=== PATIENT | male | born 1950 | race Caucasian/White ===

== ENCOUNTER 2018-01-29 10:34 | Day surgery (SDC) | payer MEDICARE, OTHER, SELFPAY ==
--- NOTE | 2018-01-29 | PATH_ITS ---
[facility] Accession Number: [id number] . 01 Material submitted: . POLYP AT 85 . 02 Diagnosis: Colon Polyp, at 85 cm: Tubular adenoma. MRV/02/01/2018 . 02 Electronically signed: . Tate Miles MD, PhD, Pathologist NPI- [id number] . 01 Gross description: . Received in one formalin-filled container labeled with the patient's name and labeled polyp at 85, are two less than 0.1 cm to 0.2 cm portions of tissue, entirely submitted in one cassette. ([id number]) /FRR . 02 Pathologist provided ICD-10: D12.6 . 02 CPT . 329053 Performed at: 01 [facility] [address] [place] [address], [place], [place] [id number] MD Jewel Hung MD Phone: [phone] Performed at: 02 [facility] [address] [place], [place] [id number] MD Checo Levy MD Phone: [phone]
[2018-01-29 11:17] VITALS: BP 170/81; PULSE 68; RESP 16; TEMP 36.8; O2SAT 96; BMI 34.9
[2018-01-29] MEDS: LACTATED RINGERS 1,000 ML 200 ML IV (11:25)
[2018-01-29] MEDS: MIDAZOLAM 5 MG/5 ML VIAL IV (12:46)
[2018-01-29] MEDS: fentaNYL 250 MCG/5 ML INJ IV (12:47)
[2018-01-29 13:06] VITALS: BP 98/68; PULSE 62; RESP 15; TEMP 36.8; O2SAT 95
[2018-01-29 13:21] VITALS: BP 112/68; PULSE 64; RESP 15; TEMP 36.3; O2SAT 94
--- NOTE | 2018-01-29 14:15 | PM.OP.ENDO ---
Operative Date/Time/Diagnoses Date of procedure: 01/29/18 Time of procedure: 12:32 Pre-op diagnosis: H/o polyps Post-op diagnosis: other (single small 3-4mm polyp at 85cm. Cold forcep bx removal) Procedure & Clinicians Indications: H/o colonic polyps Screening colonoscopy Surgeon: Isaias Barboza Procedure Notes SCOAP/Timeout: Yes Procedure in detail: After informed consent patient was taken to the endoscopy suite. Consent was reviewed including risks of perforation missed lesion anesthesia airway bleeding perforation of colon and other. A total of 6 mg of Versed and 150 mcg of fentanyl was used throughout the procedure. Total withdrawal time was 13 min. Well lubricated endoscope was placed into the anus after digital rectal exam was essentially normal colonoscope was driven to the ileocecal valve which was confirmed with an pictures were taken. After 13 min of withdrawal time a single small 3-4 mm polyp was found at 85 cm and was removed with 2 bites of a Jumbo cold forceps. No bleeding was seen. Prep was excellent. Approximately 95% of the colon was visualized. Retroflexion showed no evidence of lesion or significant hemorrhoidal tissue in the rectum. Patient tolerated the procedure well was taken to the PACU and was discharged home in good condition and his 's care. Scope withdrawal time: 13 minutes Findings: polyp Specimen(s): other Complications: none Recommendations: Colonscopy in 5 years and High fiber diet Follow up: as needed Disposition: PACU
== END 2018-01-29 13:30 | disposition home or self-care (01) ==
LOC: ENDO 10:37
PROVIDERS: PCP Internal Medicine; Visit Provider Surgery
PROC: 0DJD8ZZ Inspection of Lower Intestinal Tract, Via Natural or Artificial Opening Endoscopic (ICD-10-PCS; CPT 45378; principal; 2018-01-29 14:00)
DX: D12.4 Benign neoplasm of descending colon (principal); I10 Essential (primary) hypertension; E78.5 Hyperlipidemia, unspecified
CPT/HCPCS: 45380; 88305; J2250; J3010